=== PATIENT | male | born 1985 | race Two or more races ===

== ENCOUNTER → 2020-11-13 | Outpatient (CLI) | payer MEDICAID ==
--- NOTE | 2020-11-13 11:44 | RAD ---
EXAM: Abdomen and pelvis CT without intravenous contrast. HISTORY: Right flank pain. TECHNIQUE: Computed tomographic images of the abdomen and pelvis were obtained without contrast. Mult iplanar reformatting was performed. *One or more of the following individualized dose reduction techniques were utilized for this examina tion: 1. Automated exposure control. 2. Adjustment of the mA and/or kV according to patient size. 3. Use of iterative reconstruction technique. COMPARISON: None. FINDINGS: Evaluation of the lower thorax is unremarkable. No hepatic lesion is seen. The collar, panc reas, spleen, stomach and adrenal glands are unremarkable. There is no evidence of nephroureterolithi asis or hydronephrosis. There is no appendicitis. There is no bowel obstruction. The urinary bladder is unremarkable. The aorta is normal in caliber. There is no lymphadenopathy. There is no suspicious osseous lesion. There is grade 1 anterolisthesis with bilateral pars interarticularis defects at L5-S 1. IMPRESSION: 1. No acute abdominal or pelvic finding. 2. Grade 1 anterolisthesis with pars defects at L5-S1. Electronically signed by: Darcy Freire MD (11/13/2020 11:41 AM) [id number]
== END ==
LOC: CT 09:54
PROVIDERS: ATTEND Family Medicine
DX: R10.9 Unspecified abdominal pain (principal); M43.17 Spondylolisthesis, lumbosacral region; Z87.442 Personal history of urinary calculi
CPT/HCPCS: 74176

== ENCOUNTER 2021-02-18 08:45 | Emergency (ER) | payer MEDICAID ==
[~2021-02-18] VITALS: Ht 165.1 cm; Wt 68.7 kg
[2021-02-18 08:50] VITALS: BP 149/99
[2021-02-18] MEDS ORDERED: PERM60CR12 TP (09:12)
--- NOTE | 2021-02-18 09:12 | PHYS DOC ---
General Adult EDM: Chief Complaint: ITCHING HPI: HPI: Patient is a 35 year old male who presents with itching in his finger webspace and on his legs and arm for the last 3 days. He has a small rash. Never had similar symptoms. No fevers or chills. Otherwise feeling well. Lives at home with his and 2 children. No one else is having similar symptoms at this time. Review of Systems: Review of Systems: Constitutional: Denies fever or chills. [] Eyes: Denies change in visual acuity. [] HENT: Denies nasal congestion or sore throat. [] Respiratory: Denies cough or shortness of breath. [] Cardiovascular: Denies chest pain or edema. [] GI: Denies abdominal pain, nausea, vomiting, bloody stools or diarrhea. [] : Denies dysuria. [] Musculoskeletal: Denies back pain or joint pain. [] Integument: + Rash and itching. [] Neurologic: Denies headache, focal weakness or sensory changes. [] Endocrine: Denies polyuria or polydipsia. [] Lymphatic: Denies swollen glands. [] Psychiatric: Denies depression or anxiety. [] Heart Score: C/O Chest Pain: N/A Risk Factors: Risk Factors: DM, Current or recent (<one month) smoker, HTN, HLP, family history of CAD, obesity. Risk Scores: Score 0 - 3: 2.5% MACE over next 6 weeks - Discharge Home Score 4 - 6: 20.3% MACE over next 6 weeks - Admit for Clinical Observation Score 7 - 10: 72.7% MACE over next 6 weeks - Early Invasive Strategies Family History: Family History: No pertinent family history Allergies: Allergies: Allergies Coded Allergies Type Severity Reaction Last Updated Verified No Known Drug Allergies 02/18/21 No Physical Exam: PE: Constitutional: Well developed, well nourished, no acute distress, non-toxic appearance. [] HENT: Normocephalic, atraumatic, bilateral external ears normal, oropharynx moist, no oral exudates, nose normal. [] Eyes: PERRLA, EOMI, conjunctiva normal, no discharge. [] Neck: Normal range of motion, no tenderness, supple, no stridor. [] Cardiovascular:Heart rate regular rhythm, no murmur [] Lungs & Thorax: Bilateral breath sounds clear to auscultation [] Abdomen: Bowel sounds normal, soft, no tenderness, no masses, no pulsatile masses. [] Skin: Tracking rash in the interwebspace of the fingers, left leg, left forearm. Consistent with scabies. Back: No tenderness, no CVA tenderness. [] Extremities: No tenderness, no cyanosis, no clubbing, ROM intact, no edema. [] Neurologic: Alert and oriented X 3, normal motor function, normal sensory function, no focal deficits noted. [] Psychologic: Affect normal, judgement normal, mood normal. [] EKG: EKG: [] Radiology/Procedures: Radiology/Procedures: [] Course & Med Decision Making: Course & Med Decision Making Pertinent Labs and Imaging studies reviewed. (See chart for details) Patient is 35-year-old male with tracking ration into web space of his fingers, left matt, left forearm. Rash is consistent with scabies. Will treat with permethrin for him and his family. Dragon Disclaimer: Dragon Disclaimer: This electronic medical record was generated, in whole or in part, using a voice recognition dictation system. Departure Departure Impression: Primary Impression: Scabies Disposition: HOME / SELF CARE / HOMELESS Condition: STABLE Referrals: FAISAL AVELAR MD (PCP) Follow up with your PCP if your symptoms do not improve. Additional Instructions: You have scabies. Permethrin 5% cream: apply to whole body from the neck down. Leave on for 12 hours before washing off. Please have your whole family do the same. Please wash all of your clothes. Please follow up with your primary care doctor to ensure the rash is better in a week. If not it may need another round of treatment. Scripts Permethrin (PERMETHRIN) 60 Gm Cream..g. 1 PEARL TP ONCE for scabies, #60 GM 1 Refill Apply to entire body below the neck [address] for 12 hours prior to washing off. Please have your household family members do the same. Prov: AMANDA POWELL MD 02/18/21 AMANDA POWELL MD Feb 18, 2021 09:12
== END 2021-02-18 09:43 | disposition home or self-care (01) ==
LOC: ER 08:45
DX: B86 Scabies (principal)
CPT/HCPCS: 99282

== ENCOUNTER 2021-05-10 09:24 | Emergency (ER) | payer MEDICAID ==
[~2021-05-10] VITALS: Ht 165.1 cm; Wt 68.0 kg
[~2021-05-10 09:24] MED LIST: PERM60CR12 TP
[2021-05-10 09:32] VITALS: BP 111/73
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
== END 2021-05-10 09:58 | disposition left against medical advice (07) ==
LOC: ER 09:24
DX: R07.81 Pleurodynia (principal)
CPT/HCPCS: 99281